=== PATIENT | male | born 1950 | race Caucasian/White ===

== ENCOUNTER 2024-04-15 09:53 | Emergency (ER) | payer BC, OTHER ==
--- NOTE | 2024-04-15 10:31 | ED ---
General Adult HPI - General Stated complaint: Fall/Shoulder Injury Time Seen by Provider: 04/15/24 10:20 Source: patient, RN notes reviewed, old records reviewed - History of Present Illness Initial comments: This is a 73-year-old male who presents to the emergency department complaining of left shoulder pain. Patient states he fell last night and since then he has had a difficult time lifting the arm up from the shoulder. Patient states he has no problems with the elbow or wrist he has no hand pain. Patient denies any clavicle pain or scapular pain. Patient denies any other injury at this time - Related Data Previous Rx's Medication Instructions Recorded Albuterol Inhaler [Ventolin Hfa 1 - 2 puff INHALATION Q6HR PRN #2 02/28/15 Inhaler] puff Hydrocodone/Acetaminophen [Ramona 1 tab PO Q6HR PRN #20 tab 06/17/15 5-325] Ibuprofen [Motrin] 600 mg PO Q8HR PRN #30 tab 06/17/15 Ondansetron Odt [Zofran Odt] 4 mg PO Q8HR PRN #10 tab 06/17/15 Tamsulosin [Flomax] 0.4 mg PO DAILY #7 cap 06/17/15 Allergies Allergy/AdvReac Type Severity Reaction Status Date / Time ibuprofen [From Motrin] AdvReac Hallucinati Verified 04/15/24 11:01 ons Review of Systems ROS Statement: Those systems with pertinent positive or pertinent negative responses have been documented in the HPI. ROS Other: All systems not noted in ROS Statement are negative. Past Medical History Past Medical History: COPD Additional Past Medical History / Comment(s): Hep C History of Any Multi-Drug Resistant Organisms: None Reported Past Surgical History: Hernia Repair Past Psychological History: No Psychological Hx Reported Past Alcohol Use History: None Reported Past Drug Use History: None Reported General Exam - General Exam Comments Initial Comments: GENERAL Patient is well-developed and well-nourished. Patient is in mild distress. EYES Patient's pupils are equal and round. Extraocular motion is intact SKIN Unremarkable NEURO The patient is alert and oriented A&Ox3 PYSCH Patient has normal interpersonal interactions. MUSCULOSKELETAL Patient has some tenderness on the lateral aspect of the proximal humerus and the anterior humerus. Patient has no clavicle pain patient has no scapular pain Course Vital Signs 04/15/24 10:56 Temperature 97.9 F Pulse Rate 74 Respiratory 22 Rate Blood Pressure 134/76 O2 Sat by Pulse 96 Oximetry Medical Decision Making - Medical Decision Making Was pt. sent in by a medical professional or institution ([facility] Young, [employer], urgent care, hospital, or detention...) When possible be specific @ -No Did you speak to anyone other than the patient for history (EMS, parent, family, police, friend...)? What history was obtained from this source @ -No Did you review nursing and triage notes (agree or disagree)? Why? @ -I reviewed and agree with nursing and triage notes Were old charts reviewed (outside hosp., previous admission, EMS record, old EKG, old radiological studies, urgent care reports/EKG's, detention records)? Report findings @ -No old charts were reviewed Differential Diagnosis? @ -Differential Musculoskeletal Muscular strain, contusion, ligament sprain, fracture, arthritis, septic arthritis, bursitis, cellulitis, muscle spasm, nerve compression, DVT, arterial occlusion, herpes zoster, electrolyte abnormality, tumor.... This is not meant to be in all inclusive list EKG interpreted by me (3pts min.). @ -As above X-rays interpreted by me (1pt min.). @ -X-ray of the shoulder shows no acute abnormality CT interpreted by me (1pt min.). @ -None done U/S interpreted by me (1pt. min.). @ -None done What testing was considered but not performed or refused? (CT, X-rays, U/S, labs)? Why? @ -None What meds were considered but not given or refused? Why? @ -None Did you discuss the management of the patient with other professionals (professionals i.e. [facility] Young, [employer], lab, RT, psych nurse, social worker psychiatric, it support consultant, teacher, chemical instrumentation officer, case operator)? Give summary @ -No Was smoking cessation discussed for >3mins.? @ -No Was critical care preformed (if so, how long)? @ -No Were there social determinants of health that impacted care today? How? (Homelessness, low income, unemployed, alcoholism, drug addiction, transportation, low edu. Level, literacy, decrease access to med. care, half-way, rehab)? @ -No Was there de-escalation of care discussed even if they declined (Discuss DNR or withdrawal of care, Hospice)? DNR status @ -No What co-morbidities impacted this encounter? (DM, HTN, Smoking, COPD, CAD, Cancer, CVA, ARF, Chemo, Hep., AIDS, mental health diagnosis, sleep apnea, morbid obesity)? @ -None Was patient admitted / discharged? Hospital course, mention meds given and route, prescriptions, significant lab abnormalities, going to OR and other pertinent info. @ -Patient unable to abduct the shoulder but has no restriction at the elbow or wrist Drug Therapy requiring intensive monitoring for toxicity (Heparin, Nitro, Insuli n, Cardizem)? @ -No Were any procedures done? @ -No Diagnosis/symptom? @ -Rotator cuff injury Acute, or Chronic, or Acute on Chronic? @ -Acute Uncomplicated (without systemic symptoms) or Complicated (systemic symptoms)? @ -Uncomplicated Side effects of treatment? @ -No Exacerbation, Progression, or Severe Exacerbation? @ -No Poses a threat to life or bodily function? How? (Chest pain, [place], [place], pneumonia, PE, COPD, DKA, ARF, appy, cholecystitis, CVA, Diverticulitis, Homicidal, Suicidal, threat to staff... and all critical care pts) @ -No Disposition Clinical Impression: Fall, Rotator cuff disorder Disposition: HOME SELF-CARE Condition: Good Instructions (If sedation given, give patient instructions): Fall Prevention for Older Adults (ED), Rotator Cuff Injury (ED) Additional Instructions: Patient is a follow-up with orthopedics Is patient prescribed a controlled substance at d/c from ED?: No Referrals: Yoseph Cole MD [Primary Care Provider] - 1-2 days Time of Disposition: 12:17
[2024-04-15 11:01] VITALS: TEMP 97.9
--- NOTE | 2024-04-15 11:28 | XR ---
EXAMINATION TYPE: XR shoulder complete 3 views LT DATE OF EXAM: 04/15/2024 11:21 AM COMPARISON: None CLINICAL INDICATION: Male, 73 years old with history of fall, pain, FINDINGS: Mild degenerative change AC joint with marginal spurring and mild capsular hypertrophy. Mild sclerosi s greater tuberosity but preservation of the subacromial space. No acute fracture, subluxation, dislo cation. IMPRESSION: Mild AC joint OA and some bony changes suggesting chronic rotator cuff tendinopathy. No acute osseous abnormality seen. [facility], Workstation: [facility], 04/15/2024 11:26 AM
[2024-04-15 12:58] VITALS: BP 120/71; PULSE 60; RESP 16
== END 2024-04-15 12:58 | disposition home or self-care (01) ==
LOC: EC 09:53
DX: S46.002A Unspecified injury of muscle(s) and tendon(s) of the rotator cuff of left shoulder, initial encounter (principal); Z88.6 Allergy status to analgesic agent; W00.0XXA Fall on same level due to ice and snow, initial encounter
CPT/HCPCS: 99283